=== PATIENT | female | born 1995 | race Caucasian/White ===

== ENCOUNTER 2016-12-25 09:46 | Inpatient (IN) | payer MEDICAID ==
[~2016-12-25] VITALS: Ht 157.5 cm; Wt 86.2 kg
[2016-12-25 11:00] VITALS: Ht 157.5 cm; Wt 86.2 kg
[2016-12-25 11:01] VITALS: BP 125/70; PULSE 69; RESP 18
[2016-12-25] MEDS ORDERED: PREN1TAB13 PO (11:06)
[2016-12-25] MEDS ORDERED: LACTATED RINGER'S 1,000 ML IV SCH (11:20)
[2016-12-25] MEDS ORDERED: METHYLERGONOVINE 0.2 MG INJ IM PRN ×2 (11:30→18:00)
[2016-12-25] MEDS ORDERED: CEFAZOLIN 2 GM/50 ML (PMX) 50 ML IV SCH (11:30)
[2016-12-25] MEDS ORDERED: MISOPROSTOL 200 MCG TAB PR PRN ×2 (11:30→18:00)
[2016-12-25] MEDS ORDERED: OXYTOCIN 30 UNITS/LR 500 ML IV SCH (11:30)
[2016-12-25] MEDS ORDERED: OXYTOCIN 30 UNITS/LR 500 ML IV PRN ×2 (11:30→18:00)
[2016-12-25] MEDS ORDERED: CARBOPROST 250 MCG INJ IM PRN ×2 (11:30→18:00)
[2016-12-25] MEDS ORDERED: CITRIC ACID/NA CITRATE 30 ML CUP PO STA (12:14)
[2016-12-25] MEDS ORDERED: morphine SULFATE/PF (10 MG/10 ML) INJ ONE (12:35)
[2016-12-25] MEDS ORDERED: FENTAnyl 50 MCG/ML VIAL ONE (12:35)
[2016-12-25] MEDS ORDERED: morphine 4 MG/ML VIAL IV PRN (13:00)
[2016-12-25] MEDS ORDERED: morphine 2 MG INJ IV PRN (13:00)
[2016-12-25] MEDS ORDERED: NALOXONE (0.4 MG/ML) INJ IV PRN (13:00)
[2016-12-25] MEDS ORDERED: DIPHENHYDRAMINE 50 MG INJ IV PRN (13:00)
[2016-12-25] MEDS ORDERED: ONDANSETRON 4 MG INJ IV PRN (13:00)
[2016-12-25] MEDS ORDERED: KETOROLAC 30 MG INJ IV PRN (13:00)
[2016-12-25] MEDS ORDERED: ZOLPIDEM 5 MG TAB PO PRN (13:00)
[2016-12-25] MEDS ORDERED: PHENYLephrine (100 MCG/ML) 5ML SYG ONE (13:01)
[2016-12-25] MEDS ORDERED: DEXAMETHASONE 4 MG/ML 1 ML INJ ONE (13:02)
[2016-12-25] MEDS ORDERED: OXYTOCIN 10 UNIT INJ ONE (13:29)
[2016-12-25] MEDS ORDERED: ONDANSETRON 4 MG INJ ONE (13:30)
--- NOTE | 2016-12-25 14:08 | SIPON ---
Date/Time of Note Date/Time of Note See dictated note DATE: 12/25/16 TIME: 14:06 Operative Report Preoperative Diagnosis 40 weeks and 5 days gestation.CPD Postoperative Diagnosis Same Operation/Procedure Performed Primary . Surgeon Dr.Carlos Marleni Iraheta electrician station assistant Dr.Mee Maegan Sebastian MD Anesthesia: spinal Estimated blood loss: other Transfusion Required none Specimen None Grafts/Implants none Complications none BERYL IRAHETA MD Dec 25, 2016 14:08
--- NOTE | 2016-12-25 14:08 | SIPON ---
Date/Time of Note Date/Time of Note See dictated note DATE: 12/25/16 TIME: 14:06 Operative Report Preoperative Diagnosis 40 weeks and 5 days gestation.CPD Postoperative Diagnosis Same Operation/Procedure Performed Primary . Surgeon Dr.Carlos Marleni Iraheta players assistant Dr.Mee Maegan Sebastian MD Anesthesia: spinal Estimated blood loss: other Transfusion Required none Specimen None Grafts/Implants none Complications none BERYL IRAHETA MD Dec 25, 2016 14:08
--- NOTE | 2016-12-25 14:08 | SIPON ---
Date/Time of Note Date/Time of Note See dictated note DATE: 12/25/16 TIME: 14:06 Operative Report Preoperative Diagnosis 40 weeks and 5 days gestation.CPD Postoperative Diagnosis Same Operation/Procedure Performed Primary . Surgeon Dr.Carlos Marleni Iraheta assistant elementary teacher Dr.Mee Maegan Sebastian MD Anesthesia: spinal Estimated blood loss: other Transfusion Required none Specimen None Grafts/Implants none Complications none BERYL IRAHETA MD Dec 25, 2016 14:08
--- NOTE | 2016-12-25 15:15 | OPR ---
DATE OF OPERATION: PREOPERATIVE DIAGNOSES: Forty weeks and 5 days gestation. Cephalopelvic disproportion. POSTOPERATIVE DIAGNOSES: Forty weeks and 5 days gestation. Cephalopelvic disproportion. Baby weig hed 10 pounds 3 ounces with scores of 9 and 9. OPERATION PROCEDURE: Primary low segment transverse section. SURGEON: Beryl Iraheta MD ANESTHESIOLOGIST: Dr. Bustillo. COMPLICATIONS: None. SPECIMENS: None. PROCEDURE AND FINDINGS: With the patient under spinal anesthesia, she was laid on the table in the dorsal recumbent position, tilted to the left side. She had a White catheter draining her bladder. Her abdomen and upper thighs were prepped with ChloraPrep and after 3 minutes draped in the usual s terile fashion for this procedure. A Pfannenstiel incision was done and carried through all layers of abdominal wall. Once in the abdomen, the uterine segment was opened transversely and a living arlet trivedi child was delivered from LOP position. Baby was large and was found to have scores of 9 an d 9 and a weight of 10 pounds 3 ounces. Sample cord blood was obtained. The placenta was removed. Uterine cavity was cleaned with a clean moist laparotomy pad. Incision of the uterus was then clos ed with a continuous running stitch of 0 PDS. Good hemostasis was obtained. The pelvis was thoroug hly mopped with clean moist laparotomy pads. The incision in the uterus checked for bleeders and th ere were none. The first count of sponges was correct at this point. Then, the abdomen was closed in layers starting with the peritoneum and continuing with a stitch of 0 chromic catgut. The fascia was closed with continuous running stitch of 0 PDS. Finally, the edges of skin were brought togeth er with subcuticular 4-0 Monocryl. Sterile pressure dressing was applied and the patient was taken to recovery room with all vital signs stable. EBL was 700 mL of blood. Needle, sponge and instrume nt count at the end of the procedure was correct twice. Dictated By: BERYL TAM/NOLBERTO Conf#: [id number] DID#: [id number]
[2016-12-25 17:45] VITALS: BP 126/67; PULSE 65; RESP 18
[2016-12-25 18:00] VITALS: BP 123/63; PULSE 66; RESP 18
[2016-12-25] MEDS ORDERED: HYDROCODONE/APAP (5/325) TAB PO PRN (18:00)
[2016-12-25] MEDS ORDERED: METHYLERGONOVINE 0.2 MG TAB PO PRN (18:00)
[2016-12-25 18:30] VITALS: BP 132/68; PULSE 68; RESP 18
[2016-12-25] MEDS: CEFAZOLIN 2 GM/50 ML (PMX) 50 ML IV SCH (18:50)
[2016-12-25 18:52] VITALS: BP 114/58; PULSE 67; RESP 18
[2016-12-25 20:00] VITALS: BP 111/59; PULSE 70; RESP 18
[2016-12-25] MEDS: LACTATED RINGER'S 1,000 ML IV SCH (21:27)
[2016-12-26] VITALS: BP_SYST 107; BP_SYST 111; BP_DIAS 57; BP_DIAS 59; PULSE 75; RESP 17
[2016-12-26] MEDS: CEFAZOLIN 2 GM/50 ML (PMX) 50 ML IV SCH ×2 (03:09→10:00)
[2016-12-26 04:00] VITALS: BP 100/55; PULSE 77; RESP 17
[2016-12-26] MEDS: LACTATED RINGER'S 1,000 ML IV SCH ×2 (06:26→09:53)
[2016-12-26 08:00] VITALS: BP 104/55; PULSE 75; RESP 16
--- NOTE | 2016-12-26 08:27 | PN ---
Date/Time of Note Date/Time of Note DATE: 12/26/16 TIME: 08:24 OB Subjective Subjective Subjective Feels well,sitting up in bed.Good pain control.God output. OB Objective Objective Objective Afebrile.Lochia normal.Abdomen soft,dressing intact HEENT: WNL Heart: Rhythm Normal Lungs: Clear Abdomen: WNL Extremities: Normal BERYL TREVINO MD Dec 26, 2016 08:27
--- NOTE | 2016-12-26 09:19 | PREOPHP ---
DATE OF ADMISSION: 12/25/2016 REASON FOR ADMISSION: She is admitted for an elective at 40 weeks and 5 days' gestation. HISTORY OF PRESENT ILLNESS: This is a 21-year-old female primigravida whose EDC has been confirmed by ultrasound to be 12/20/2016. The baby's head has remained in the abdomen floating ballottable. The patient has requested to have a section for the of this child. On the last pelvi c exam, the head has remained outside of the pelvis at all times above the pelvic brim. PAST MEDICAL HISTORY: The patient denies any medical problems including diabetes, cardiac disease, liver disease, renal disease, thyroid disease, neurological problems. She had an appendectomy on an emergency basis the past. ALLERGIES: NO KNOWN ALLERGIES. MEDICATIONS: Takes only vitamins on a regular basis. FAMILY HISTORY: Noncontributory. REVIEW OF SYSTEMS: A 12-point review of systems is noncontributory. PHYSICAL EXAMINATION: GENERAL: Well-developed and nourished, in no distress, alert and oriented x3 with a height of 5 fee t 2 inches and weight 181 pounds. VITAL SIGNS: Showed temperature to be 98, blood pressure 105/62, respirations 16 per minute, pulse 72 per minute regular. HEENT: Within normal limits. Pupils are PERRLA. NECK: Supple. Thyroid is not palpable. There is no lymphadenopathy. BREASTS: Show no masses or lumps. Nipples are normal. LUNGS: Clear to percussion and auscultation. HEART: Normal sinus rhythm without a murmur. ABDOMEN: Soft. Uterus enlarged to 40 cm above the pubic bone, single baby, longitudinal lie, cepha lic presentation. Baby still ballottable. heart rate is category 1. PELVIC: Normal external genitalia. Pelvis seems to be small. Cervix is closed, long, and baby is high up in the abdomen. EXTREMITIES: Within normal limits. NEUROLOGIC: Also normal. IMPRESSION: A 40 weeks and 5 days' gestation. Suprapelvic disproportion. PLAN: The patient is to be delivered by primary section. Dictated By: BERYL TAM/NOLBERTO Conf#: [id number] DID#: [id number] CC: Next of Kin;*EndCC*
[2016-12-26 12:00] VITALS: BP 115/54; PULSE 75; RESP 18
[2016-12-26] MEDS: IBUPROFEN 800 MG TAB PO SCH ×2 (14:03→22:18)
[2016-12-26 15:30] VITALS: BP 112/50; PULSE 80; RESP 16
[2016-12-26 21:00] VITALS: BP 113/62; PULSE 68; RESP 17
[2016-12-26] MEDS: HYDROCODONE/APAP (5/325) TAB PO PRN (22:19)
[2016-12-27] MEDS: LANOLIN 7 GM TUBE TOP PRN ×2 (01:46→20:42)
[2016-12-27 04:45] VITALS: BP 103/55; PULSE 79; RESP 16
[2016-12-27] MEDS: IBUPROFEN 800 MG TAB PO SCH ×3 (05:58→22:38)
--- NOTE | 2016-12-27 08:36 | PN ---
Date/Time of Note Date/Time of Note DATE: 12/27/16 TIME: 08:36 OB Subjective Subjective Subjective Doing well.Passes gases. OB Objective Objective Objective Afebrile,normal lochia HEENT: WNL Heart: Rhythm Normal Lungs: Clear Abdomen: WNL Extremities: Normal BERYL TREVINO MD Dec 27, 2016 08:36
[2016-12-27 09:15] VITALS: BP 114/66; PULSE 62; RESP 18
[2016-12-27] MEDS: HYDROCODONE/APAP (5/325) TAB PO PRN (11:51)
[2016-12-27 16:40] VITALS: BP 102/65; PULSE 68; RESP 17
[2016-12-27 20:30] VITALS: BP 122/61; PULSE 66; RESP 17
[2016-12-28 04:30] VITALS: BP 116/65; PULSE 64; RESP 17
[2016-12-28] MEDS: IBUPROFEN 800 MG TAB PO SCH (05:47)
--- NOTE | 2016-12-28 07:56 | PD.PPDC ---
REHAB SPEC Discharge Instruction Diagnosis Final Diagnosis: 40 weeks and 5 days gestation CPD macrosomia Condition Patient Condition: Good Diet Diet: Resume Regular Diet Activity/Restrictions Activity: Normal Activity May Shower Restrictions: No Exercising No Lifting No Sexual Activity Nothing in the Vagina No [place] Wound/Drain Care Instructions Wound/Drain Care Instructions: Keep clean and dry Follow-up Follow-up with Physician: 1, Week/Weeks Return to clinic for LASTING ROOM MACHINE OPERATOR Instructions: Fever greater than 101 Worsening abdominal pain Excessive Vaginal Bleeding OB Instructions: Blurried Vision Headache Surgical Instructions: Incisional Drainage (shower and wash hair as usual.) Incisional Redness BERYL TREVINO MD Dec 28, 2016 07:55
--- NOTE | 2016-12-28 07:56 | PD.PPDC ---
BATCHER OPERATOR Discharge Instruction Diagnosis Final Diagnosis: 40 weeks and 5 days gestation CPD macrosomia Condition Patient Condition: Good Diet Diet: Resume Regular Diet Activity/Restrictions Activity: Normal Activity May Shower Restrictions: No Exercising No Lifting No Sexual Activity Nothing in the Vagina No [place] Wound/Drain Care Instructions Wound/Drain Care Instructions: Keep clean and dry Follow-up Follow-up with Physician: 1, Week/Weeks Return to clinic for JUICE PACKAGING MACHINES SETTER Instructions: Fever greater than 101 Worsening abdominal pain Excessive Vaginal Bleeding OB Instructions: Blurried Vision Headache Surgical Instructions: Incisional Drainage (shower and wash hair as usual.) Incisional Redness BERYL TREVINO MD Dec 28, 2016 07:55
--- NOTE | 2016-12-28 07:56 | PD.PPDC ---
GIS ENGINEER Discharge Instruction Diagnosis Final Diagnosis: 40 weeks and 5 days gestation CPD macrosomia Condition Patient Condition: Good Diet Diet: Resume Regular Diet Activity/Restrictions Activity: Normal Activity May Shower Restrictions: No Exercising No Lifting No Sexual Activity Nothing in the Vagina No [place] Wound/Drain Care Instructions Wound/Drain Care Instructions: Keep clean and dry Follow-up Follow-up with Physician: 1, Week/Weeks Return to clinic for PLAY BACK OPERATOR Instructions: Fever greater than 101 Worsening abdominal pain Excessive Vaginal Bleeding OB Instructions: Blurried Vision Headache Surgical Instructions: Incisional Drainage (shower and wash hair as usual.) Incisional Redness BERYL TREVINO MD Dec 28, 2016 07:55
[2016-12-28 08:25] VITALS: BP 120/59; PULSE 64; RESP 17
[2016-12-28] MEDS: HYDROCODONE/APAP (5/325) TAB PO PRN (08:52)
[2016-12-28] MEDS ORDERED: DIPHTH/TET/ACEL PERTUSS (ADULT) 0.5 ML VIAL IM* ONE (09:00)
--- NOTE | 2016-12-28 11:17 | DS ---
DATE OF ADMISSION: 12/25/2016 DATE OF DISCHARGE: 12/28/2016 FINAL DIAGNOSES: Forty weeks and 5 days gestation. CPD. macrosomia. SUMMARY: This is a 21-year-old female primigravida who was admitted electively at 40 weeks and 5 da ys gestation with the diagnosis of cephalopelvic disproportion. The baby's head never came engaged. She underwent section and gave to a baby boy that weighed 10 pounds 13 ounces. Pos toperatively, both mother and baby have done well. She is ambulatory, tolerating a regular diet. I ncision is healing well without any signs of infection. She is discharged with printed instructions in good condition with a prescription for Percocet 40 tablets to use 1 or 2 every 6 hours p.r.n. pa in and was directed to make an appointment with the office in 1 week for followup. Dictated By: BERYL TAM/NOLBERTO Conf#: [id number] DID#: [id number]
== END 2016-12-28 12:45 | disposition home or self-care (01) | DRG 766 ==
LOC: L-D 09:46 → PP1 17:40
PROVIDERS: ADMIT Specialist; ATTEND Specialist
PROC: 3E0P3VZ Introduction of Hormone into Female Reproductive, Percutaneous Approach (ICD-10-PCS; 2016-12-25)
PROC: 10D00Z1 Extraction of Products of Conception, Low, Open Approach (ICD-10-PCS; principal; 2016-12-25 12:30)
DX: O48.0 Post-term pregnancy (principal); O33.9 Maternal care for disproportion, unspecified; Z3A.40 40 weeks gestation of pregnancy; Z37.0 Single live birth
CPT/HCPCS: 82962; 85025; 85610; 85730; 86592; 86850; 86900; 86901; 87340; 90715; 99464; J0690; J1100; J1885; J2274; J2370; J2405; J2590; J3010; J7120